=== PATIENT | male | born 1955 ===

== ENCOUNTER → 2021-04-19 08:00 | Outpatient (CLI) | payer OTHER ==
[~2021-04-19 08:00] MED LIST: COZAAR25 MG PO; NEURONTIN800 MG PO
== END | disposition home or self-care (01) ==
LOC: LAB 08:00 → ADM 08:15 → CIR.AMB 04-22 08:15 → EDSTATUS 04-22 08:15
PROVIDERS: ATTEND Surgery
DX: N47.1 Phimosis (principal); N52.01 Erectile dysfunction due to arterial insufficiency; Z11.52 Encounter for screening for COVID-19; Z20.828 Contact with and (suspected) exposure to other viral communicable diseases; I10 Essential (primary) hypertension; Q33.8 Other congenital malformations of lung